=== PATIENT | female | born 1975 | race Caucasian/White ===

== ENCOUNTER 2018-05-21 19:04 | Outpatient (REF) | payer OTHER, SELFPAY ==
--- NOTE | 2018-05-21 15:30 | PAPFT_PTH ---
PATIENT: Rhea Arzola LOC: [facility] U#:[id number] AGE/SX: 43/F ROOM: RE05/21/[address]: Benita Howell : 1975 BED: DIS: 05/21/2018 SPEC #: [id number] RECD: 05/22/18 12:40 STATUS: CESAR BARR #: [id number] ROBSON: 05/21/18 15:[address]: Benita Howell DEPT: [facility] Cytology RECD BY: Betty Khan Tissues: 1 - CX/ENDOCX FOR PAP SMEARS Procedures: PAP THIN PREP/UVM Screening HPV DNA PROBE Comments: [id number]
== END 2018-05-21 19:24 ==
LOC: NCHCN 19:04
PROVIDERS: PCP Physician Assistant Medical; Visit Provider Physician Assistant Medical
DX: Z12.4 Encounter for screening for malignant neoplasm of cervix (principal); Z11.51 Encounter for screening for human papillomavirus (HPV)
CPT/HCPCS: 88142; 87624

== ENCOUNTER 2018-06-04 07:44 | Outpatient (CLI) | payer OTHER, SELFPAY ==
[2018-06-04 10:16] LABS: TSH (W/Ref FT4) 1.27 uIU/mL (0.358-3.74)
[2018-06-06 12:28] LABS: ALT 21 U/L (12-78); AST 20 U/L (15-37); Albumin 3.8 g/dL (3.4-5.0); Alkaline Phosphatase 45 U/L (46-116); Anion Gap 12.5 mmol/L (3-11); BUN 12 mg/dL (7-18); Bilirubin, Total 0.3 mg/dL (0.2-1.0); CO2 23.5 mmol/L (21.0-32.0); CREATININE 0.81 mg/dL (0.55-1.02); Calcium 8.6 mg/dL (8.5-10.1); Chloride 105 mmol/L (98-107); Cholesterol 171 mg/dL (50-200); Glucose 87 mg/dL (70-100); HDL Cholesterol 48 mg/dL (40-60); LDL CHOLESTEROL 100 mg/dL (<100); Potassium 3.6 mmol/L (3.5-5.1); Sodium 141 mmol/L (136-145); Total Protein 6.6 g/dL (6.4-8.2); Triglyceride 84 mg/dL (30-150)
== END 2018-06-04 08:04 ==
PROVIDERS: PCP Physician Assistant Medical; Visit Provider Physician Assistant Medical
DX: Z00.00 Encounter for general adult medical examination without abnormal findings (principal); Z13.29 Encounter for screening for other suspected endocrine disorder; Z13.220 Encounter for screening for lipoid disorders; Z13.228 Encounter for screening for other metabolic disorders
CPT/HCPCS: 36415; 80053; 80061; 83721; 84443

== ENCOUNTER 2018-06-16 01:00 | Outpatient (CLI) | payer OTHER, SELFPAY ==
--- NOTE | 2018-06-16 17:19 | DI.MAMMO_ITS ---
SYMPTOM/DIAGNOSIS: SCREENING, Z12.31, HEALTH MAINTENANCE, Z00.8 MAMMOGRAMS: Mammograms were interpreted according to the usual protocol including computer analysis with CAD system, tomosynthesis and C view imaging. Comparison with prior examinations. Breast density D. No suspicious masses or microcalcifications are seen. There is no definite evidence of malignancy. IMPRESSION: Negative mammogram. Routine screening is recommended. Category I. MQSA ASSESSMENT OF FINDINGS: Negative. Category 1. Patient will receive a letter notifying them of these results. BI-RADS category D. The breasts are extremely dense, which lowers the sensitivity of mammography.
== END 2018-06-16 01:20 ==
PROVIDERS: PCP Physician Assistant Medical; Visit Provider Physician Assistant Medical
DX: Z00.00 Encounter for general adult medical examination without abnormal findings (principal); Z12.31 Encounter for screening mammogram for malignant neoplasm of breast
CPT/HCPCS: 77063; 77067

== ENCOUNTER 2019-01-14 18:17 | Outpatient (REF) | payer OTHER, SELFPAY | END 2019-01-14 18:37 | LOC: NCHCN 18:17 | PROVIDERS: PCP Physician Assistant Medical; Visit Provider Physician Assistant Medical | DX: N89.8 Other specified noninflammatory disorders of vagina (principal) | CPT/HCPCS: 87480; 87510; 87660 ==

== ENCOUNTER 2020-03-29 12:11 | Outpatient (REF) | payer OTHER, SELFPAY ==
--- NOTE | 2020-03-29 16:00 | SKI_PTH ---
PATIENT: Rhea Arzola LOC: [facility] U#:[id number] AGE/SX: 45/F ROOM: RE03/29/[address]: Rambo Bradley V : 1975 BED: DIS: 03/29/2020 SPEC #: [id number] RECD: 03/30/20 16:16 STATUS: CESAR REQ #: [id number] ROBSON: 03/29/20 16:[address]: Rambo Bradley V DEPT: Surgical Specimen RECD BY: Betty Khan ENTERED: 03/30/20 16:17 SP TYPE: CASSANDRA LYONS DR: Benita Howell Tissues: 1 - SKIN BIOPSY(SHAVE/PUNCH) Procedures: SKIN LEVEL 4 Comments: [id number]
== END 2020-03-29 12:31 ==
LOC: LBN 12:11
PROVIDERS: PCP Physician Assistant Medical; Visit Provider Physician Assistant Medical
DX: C44.42 Squamous cell carcinoma of skin of scalp and neck (principal)
CPT/HCPCS: 88305

== ENCOUNTER 2020-11-03 03:42 | Outpatient (CLI) | payer BC, SELFPAY ==
--- NOTE | 2020-11-03 15:18 | DI.MAMMO_ITS ---
Exam(s) MAMMO SCREENING EXAM: MAMMO SCREENING CLINICAL HISTORY: SCREENING, HEALTH MAINTENANCE, Z00.8. TECHNIQUE: Bilateral full field digital CC and MLO mammographic images were obtained with 3D tomosyn thesis and utilizing computer aided detection (CAD). COMPARISON: Prior mammograms dating back to 2013, the most recent being June 2018. FINDINGS: Fibroglandular tissue is again noted be moderately dense, this decreasing the sensitivity of the mamm ogram for finding hidden underlying lesions. There are no new obvious spiculated masses nor malignant appearing microcalcification groups. There is no significant architectural distortion nor skin thickening-retraction. IMPRESSION: Dense bilateral fibroglandular tissue. No obvious radiographic evidence of malignancy nor significan t change compared to the prior studies listed above. BI-RADS Category 1 - Negative Breast Density - Category D - Extremely dense Breast density Category C or D implies that the patient has dense breast tissue. Dense breast tissue can make it harder to find cancer on a mammogram. Dense breast tissue is also associated with an incr eased risk of breast cancer. This information about the result of the mammogram report was provided to the patient to raise their awareness. Use this report when you speak with the patient about their risks for breast cancer, which includes their family history. At that time, you may recommend additional screening tests (Ultrasoun d or MRI) as these tests may add significant information. A negative radiographic report should not delay biopsy if a dominant or clinically suspicious mass is present. Up to ten percent of cancers are not identified on mammography. A negative report may reinforce clinical impression. Adenosis and dense breasts may obscure an underlying neoplasm. False positive reports average 6 to 10%. Patient will receive a letter notifying them of these results.
== END 2020-11-03 04:02 ==
PROVIDERS: PCP Physician Assistant Medical; Visit Provider Physician Assistant Medical
DX: Z12.31 Encounter for screening mammogram for malignant neoplasm of breast (principal); Z00.8 Encounter for other general examination
CPT/HCPCS: 77063; 77067

== ENCOUNTER 2022-07-31 08:52 | Day surgery (SDC) | payer BC, SELFPAY ==
--- NOTE | 2022-07-30 18:38 | PDOC.DSDIS_ITS ---
Date of service: 07/31/22 Time of Service: 10:18 Discharge Plan Disposition Patient Disposition: Home Condition: Good Discharge Details Reason For Visit: colon scope/colon cancer screening Attending Provider: Jennifer Lorenz Primary Care Provider: Benita Howell Home Meds and New Rx's Prescriptions: Continued cetirizine [Zyrtec] 10 mg tablet 10 mg PO DAILY PRN duloxetine 30 mg capsule,delayed release(DR/EC) 30 mg PO DAILY duloxetine 60 mg capsule,delayed release(DR/EC) 60 mg PO DAILY albuterol sulfate [Ventolin HFA] 90 mcg/actuation HFA aerosol inhaler 2 puff inhalation Q6H PRN Discontinued polyethylene glycol 3350 17 gram/dose powder 238 g PO ONCE Qty: 238 0RF Rx Instructions: take per colonoscopy instructions bisacodyl [Dulcolax (bisacodyl)] 5 mg tablet,delayed release (DR/EC) 5 mg PO ONCE Qty: 4 0RF Rx Instructions: take per colonoscopy instructions Discharge Instructions Additional Instructions: DSU Colonoscopy Post- Op Instructions Instructions for Everyone who is given Anesthesia: For your safety, please do the following for the next twenty-four (24) hours: *Do Not operate a motor vehicle (car, truck, motorcycle, etc.) *Do Not drink alcoholic beverages or use any recreational drugs for the first 24 hours or while taking pain medications. The medications in your body may have a reaction that can be dangerous. *Do Not make any important decisions or sign any important papers. Findings: x3 polyps Follow up: -My office will send a letter in 2 to 3 weeks time, stating as to what type of polyps they were and when we want you to repeat the colonoscopy, 5-7 year. 1. No lifting over 20 pounds or strenuous activity for the first 24 hours after your procedure. After 24 hours there are no restrictions on your activity but you may feel fatigued for a few days. 2. After you arrive home you may have a light meal and return to your normal diet as you can tolerate it without feeling sick to your stomach. 3. You may have a bloated, gaseous feeling in your belly (abdomen) after a colonoscopy. Passing gas and belching will help. Walking or lying down on your left side with your knees flexed may relieve the discomfort. Call the office at [phone] (Office) or [phone] (Hospital) right away if you notice any of the following: a.Vomiting of blood or ?coffee ground stools?. b.Rectal bleeding 1Tbsp, blood clots or continuous bleeding. c.Severe belly (abdominal) pain. d.A hard distended belly (abdomen) and an inability to pass gas. 4. Please don?t expect to have a normal BM (bowel movement) for 2-3 days after your procedure. 5. If there are questions regarding the findings of your procedure, please contact your doctor 6. If you are unable to contact your doctor with a problem, contact the hospital at [phone]. 7. Continue all your regular medications unless directed otherwise. I understand the above instructions and have no questions. Signature of Patient or Adult Escort Name of Responsible Adult Escort Signature of Nurse Date/Time Activity:: see above Diet:: see above Discharge Orders Discharge Orders: Discharge Order (Routine); Ordered 07/31/22 Ordered By: Jennifer Lorenz
[2022-07-31 09:01] VITALS: BP 124/83; PULSE 100; RESP 20; TEMP 36.6; O2SAT 100
--- NOTE | 2022-07-31 09:11 | ANES.PREOP_ITS ---
General Info Date of Service Date Performed: 07/31/22 Height: 5 ft 7.75 in Weight: 72.9 kg Body Mass Index (BMI): 24.6 Surgical Procedure: Operation Date: 07/31/22 10:05 Proposed Procedure Side Surgeon brynn Lorenz, DO Meds Allergies and Home Medications Allergies Allergy/AdvReac Type Severity Reaction Status Date / Time benzoyl peroxide Allergy Intermediate RASH Verified 07/30/22 11:12 Sulfa (Sulfonamide Allergy Intermediate HIVES Verified 07/30/22 11:12 Antibiotics) Home Medication Medication Instructions Recorded albuterol sulfate 90 mcg/actuation 2 puff inhalation Q6H PRN 02/12/22 aerosol inhaler (Ventolin HFA) duloxetine 30 mg capsule,delayed 30 mg PO DAILY 02/12/22 release duloxetine 60 mg capsule,delayed 60 mg PO DAILY 02/12/22 release cetirizine 10 mg tablet (Zyrtec) 10 mg PO DAILY PRN 07/26/22 Current Visit Medications: Current Medications Generic Name Dose Route Start Last Admin Trade Name Freq PRN Reason Stop Dose Admin Hyoscyamine Sulfate 0.125 mg 07/31/22 11:36 Hyoscyamine 0.125 Mg Sl/Oral/Chew SL DIRECTED PRN Ringer's Solution 1,000 mls @ 80 mls/hr 07/31/22 06:00 IV 08/29/22 23:59 INFUSION [facility] IV Miscellaneous Supplies 1 each 07/31/22 06:00 Iv Access IV 08/29/22 23:59 DIRECTED [place] Ondansetron HCl 4 mg 07/31/22 11:36 Ondansetron 4 Mg/2 Ml Vial IVP Q4H PRN PRN Nausea / Vomiting Sodium Chloride 0 ml 07/31/22 06:00 Normal Saline Flush 10 Ml Syr IV 08/29/22 23:59 PRN PRN Sodium Chloride 0 ml 07/31/22 06:00 Normal Saline 10 Ml Vial IJ 08/29/22 23:59 DIRECTED PRN Sterile Water 0 ml 07/31/22 06:00 Water,Injection,Sterile 10 Ml Vial IJ 08/29/22 23:59 DIRECTED PRN PFSH Active Problems Active Problems: Problem Status Onset Code Acute UTI N39.0 Allergic asthma J45.909 Raynaud's phenomenon I73.00 Depression F32.A Acne L70.9 Hard of hearing H91.90 ZEN (obstructive sleep apnea) G47.33 Screening for colon cancer Z12.11 Medical History Medical History Allergic rhinitis NE (generalized anxiety disorder) Primary squamous cell carcinoma of head and neck Unresolved grief Tobacco Smoking/Tobacco Use Status: Never Alcohol Alcohol Intake: current Alcohol intake frequency: holidays/special occasions only Substance Use Substance use: Never Substance use type: does not use Vital Signs and Lab Results Vital Signs Most Recent Vital Signs in EMR: Most Recent Vital Signs Temp Pulse Resp BP Pulse Ox 36.6 C 100 H 20 124/83 100 07/31/22 09:01 07/31/22 09:01 07/31/22 09:01 07/31/22 09:01 07/31/22 09:01 Lab Results Blood Type / Crossmatch: No Data to Display Complete Blood Count: No Data to Display Complete Metabolic Panel: No Data to Display Liver Function Panel: No Data to Display Coagulation Panel: No Data to Display Cardiac Panel: No Data to Display Arterial Blood Gas: No Data to Display Venous Blood Gas: No Data to Display Pancreas Panel: No Data to Display Thyroid Panel: No Data to Display Infectious Disease: No Data to Display Blood Cultures: No Data to Display Toxicology Panel: No Data to Display Panel: No Data to Display Anesthesia Assessment and Plan Anesthesia History Personal History: No History of Anesthesia Complications Family History: No Family History of Anesthesia Complications Exercise Tolerance Exercise Tolerance: Metabolic Equivalents>4 Pertinent Negatives Pertinent Negatives: No Symptoms of GERD, No Major Cardiovascular Symptoms or Complaints and No Major Pulmonary Symptoms or Complaints Cardiac & Pulmonary Exam Cardiac Exam: Normal S1/S2 Heart Sounds Pulmonary Exam: Clear Bilateral Breath Sounds Implantable Cardiac Device Does patient have a Pacemaker or an ICD?: No Airway Exam Known Difficult Airway: No Mallampati Class: 1 Mouth Opening: Normal (> 3cm) Thyromental Distance: Greater than 3 cm Neck Range of Motion: Full ROM Neck Circumference: Normal Teeth Condition: Normal Dentition ASA Classification ASA Score: ASA 2 Emergency Case?: No NPO Status NPO Status: NPO Clears >2 hours, Solids >8 hours Status Status: Negative HCG Anesthesia Plan Resuscitation Status: Full Code Anesthesia Technique: General Anesthesia Airway Planned: Natural Airway Monitors Used: Standard Monitors
[2022-07-31 09:14] VITALS: BMI 24.6
[2022-07-31] MEDS: Lactated Ringers 1,000 ML 80 ML IV (09:15)
--- NOTE | 2022-07-31 09:43 | BOWEL_PTH ---
PATIENT: Rhea Arzola LOC: [facility] U#:[id number] AGE/SX: 47/F ROOM: RE07/31/[address]: Jennifer Lorenz : 1975 BED: DIS: 07/31/2022 SPEC #: [id number] RECD: 07/31/22 12:33 STATUS: CESAR RE #: [id number] ROBSON: 07/31/22 09:[address]: Jennifer Lorenz DEPT: Surgical Specimen RECD BY: Betty Khan ENTERED: 07/31/22 12:36 SP TYPE: Bowel OTHR DR: Benita Howell Tissues: 1 - BIOPSY BOWEL 2 - BIOPSY BOWEL Procedures: GROSS AND MICRO LEVEL 4 Comments: [id number]
[2022-07-31 10:06] VITALS: BP 97/68; PULSE 79; RESP 16; TEMP 36.6; O2SAT 78
--- NOTE | 2022-07-31 10:19 | COLE_ITS ---
Date of service: 07/31/22 Time of Service: 10:19 Colonoscopy Report Date of procedure: 07/31/22 Pre-op diagnosis general: CRC screening Post-op diagnosis procedure note: other (polyps ) Surgeon: Jennifer Lorenz Anesthesia Type: General:No Airway Estimated blood loss (mL): 2 Pathology: other Complications: None Disposition: same day Prep: Miralax/Dulcolax Retraction Time: 18 Procedure Description: After informed consent was obtained the patient was taken to the procedure room and placed in a left decubitous position. Monitors were applied and a time out was done. The patients name, date of , procedure, allergies to medications and metal in their body was reviewed. The patient was then sedated. Once sedated and comfortable a rectal exam was done. External exam was normal. Internal exam revealed a normal sphincter tone and no palpable masses. The scope was then introduced and retrofelexed. No internal hemorrhoids were identified. The scope was then advanced to the cecum w/out difficulty. The TI and appendiceal orifice were identified. The prep was BBPS 3 in all segments for a total of 9. The scope was then slowly retracted over 18 minutes back into the rectum. The patient 3 polyps that were removed. One was a 0.75 cm polyp at 40 cm that is removed with a cold biting forcep. There is another 0.75 cm pedunculated polyp at 20 cm that is removed with a cold snare. There is another 5 mm flat polyp at 20 cm that is removed with a cold snare. All specimens are retrieved and no bleeding is noted. The mucosa is pink and healthy with a normal vascular pattern. There are no AVMs or diverticula visualized. The scope was removed and the patient was woken up and taken back to Same day surgery in stable condition. The patient tolerated the procedure well and there were no immediate com plications. Follow up: The patient should follow up in 5-7, path pd, years unless they develop changes in bowel habits or other new gastrointestinal complaints.
[2022-07-31 10:35] VITALS: BP 111/74; PULSE 84; RESP 16; TEMP 37.1; O2SAT 97
--- NOTE | 2022-07-31 10:49 | W.ANESPOSTOP ---
Postoperative Evaluation Date, Time and Location Date Performed: 07/31/22 Time Performed: 10:49 Patient Location: Day Surgery Unit Vital Signs Most Recent Imported Vital Signs: Most Recent Vital Signs Temp Pulse Resp BP Pulse Ox 37.1 C 84 16 111/74 97 07/31/22 10:35 07/31/22 10:35 07/31/22 10:35 07/31/22 10:35 07/31/22 10:35 Pain Score Most Recent Pain Score: Most Recent Pain Score Pain Level 0 07/31/22 10:35 Assessment Mental Status: Awake (Alert & Oriented to Patient Baseline) Airway and Respiratory Function: Patent airway with normal (patient baseline) respiratory exam Cardiovascular Function: Hemodynamically Stable Hydration Status: Adequately Hydrated Nausea & Vomiting: No Nausea or Vomiting Pain: Pt. Denies Any Pain Peripheral Nerve Block: Patient did not receive a nerve block
== END 2022-07-31 11:15 | disposition home or self-care (01) ==
PROVIDERS: PCP Physician Assistant Medical; Visit Provider Surgery
PROC: 0DJD8ZZ Inspection of Lower Intestinal Tract, Via Natural or Artificial Opening Endoscopic (ICD-10-PCS; CPT 45378; principal; 2022-07-31 10:00)
DX: Z12.11 Encounter for screening for malignant neoplasm of colon (principal); K63.5 Polyp of colon
CPT/HCPCS: 45385; 45380; 81025; 88305

== ENCOUNTER 2022-09-21 00:33 | Outpatient (CLI) | payer BC, SELFPAY ==
--- NOTE | 2022-09-21 | DI.MAMMO_ITS ---
Exam(s) MAMMO SCREENING EXAM: MAMMO SCREENING CLINICAL HISTORY: SCREENING MAMMO FOR BREAST CANCER Z12.39. TECHNIQUE: Bilateral full field digital CC and MLO mammographic images were obtained with 3D tomosyn thesis and utilizing computer aided detection (CAD). COMPARISON: Prior mammograms were reviewed. FINDINGS: Fibroglandular tissue is again noted be moderately dense. Asymmetric tissue posterolaterally in the right breast is unchanged There are no obvious new spiculated masses nor malignant appearing microcalcification groups. There is no significant architectural distortion nor skin thickening-retraction. IMPRESSION: No radiographic evidence of malignancy. BI-RADS Category 1 - Negative Breast Density - Category C - Heterogeneously dense Breast density Category C or D implies that the patient has dense breast tissue. Dense breast tissue can make it harder to find cancer on a mammogram. Dense breast tissue is also associated with an incr eased risk of breast cancer. This information about the result of the mammogram report was provided to the patient to raise their awareness. Use this report when you speak with the patient about their risks for breast cancer, which includes their family history. At that time, you may recommend additional screening tests (Ultrasoun d or MRI) as these tests may add significant information. A negative radiographic report should not delay biopsy if a dominant or clinically suspicious mass is present. Up to ten percent of cancers are not identified on mammography. A negative report may reinforce clinical impression. Adenosis and dense breasts may obscure an underlying neoplasm. False positive reports average 6 to 10%. Patient will receive a letter notifying them of these results.
== END 2022-09-21 00:53 ==
LOC: DI 00:33
PROVIDERS: PCP Physician Assistant Medical; Visit Provider Physician Assistant Medical
DX: Z12.31 Encounter for screening mammogram for malignant neoplasm of breast (principal)
CPT/HCPCS: 77063; 77067

== ENCOUNTER 2023-03-19 13:21 | Outpatient (REF) | payer BC, SELFPAY ==
[2023-03-19 16:47] LABS: ALT 19 U/L (14-59); AST 18 U/L (15-37); Albumin 4.1 g/dL (3.4-5.0); Alkaline Phosphatase 53 U/L (46-116); Anion Gap 6.9 mmol/L (3-11); BUN 11 mg/dL (7-18); Bilirubin, Total 0.4 mg/dL (0.2-1.0); CO2 28.1 mmol/L (21.0-32.0); CREATININE 0.8 mg/dL (0.55-1.02); Calcium 8.8 mg/dL (8.5-10.1); Chloride 103 mmol/L (98-107); Estimated GFR 89.71 (mL/min/1.73m2); FREE T4 0.72 ng/dL (0.76-1.46); Glucose 102 mg/dL (74-106); Potassium 3.8 mmol/L (3.5-5.1); Sodium 138 mmol/L (136-145); TSH 1.96 uIU/mL (0.36-3.74); Total Protein 7.6 g/dL (6.4-8.2)
[2023-03-19 17:07] LABS: Vitamin D 25 Total 24.7 ng/mL (30-100)
== END 2023-03-19 13:22 | disposition home or self-care (01) ==
LOC: NCHCN 13:21
PROVIDERS: PCP Physician Assistant Medical; Visit Provider Physician Assistant Medical
DX: F32.89 Other specified depressive episodes (principal); Z79.899 Other long term (current) drug therapy; E55.9 Vitamin D deficiency, unspecified
CPT/HCPCS: 80053; 82306; 84439; 84443

== ENCOUNTER 2023-07-04 05:08 | Outpatient (CLI) | payer BC, SELFPAY ==
[2023-07-04 17:14] LABS: ALT 21 U/L (14-59); AST 17 U/L (15-37); Albumin 3.8 g/dL (3.4-5.0); Alkaline Phosphatase 58 U/L (46-116); Anion Gap 7.3 mmol/L (3-11); BUN 13 mg/dL (7-18); Bilirubin, Total 0.3 mg/dL (0.2-1.0); CO2 28.7 mmol/L (21.0-32.0); CREATININE 0.8 mg/dL (0.55-1.02); Calcium 8.8 mg/dL (8.5-10.1); Chloride 102 mmol/L (98-107); Estimated GFR 89.71 (mL/min/1.73m2); Glucose 87 mg/dL (74-106); Potassium 3.9 mmol/L (3.5-5.1); Sodium 138 mmol/L (136-145)
== END 2023-07-04 05:09 | disposition home or self-care (01) ==
LOC: LBO 05:08
PROVIDERS: PCP Physician Assistant Medical; Visit Provider Nurse Practitioner Psychiatric/Mental Health
DX: R42 Dizziness and giddiness (principal)
CPT/HCPCS: 36415; 80053

== ENCOUNTER 2024-04-22 18:36 | Outpatient (REF) | payer BC, SELFPAY ==
--- NOTE | 2024-04-22 17:30 | PAPFT_PTH ---
PATIENT: Rhea Arzola LOC: [facility] #:[id number] AGE/SX: 49/F ROOM: RE04/22/[address]: Benita Howell : 1975 BED: DIS: 04/22/2024 SPEC #: [id number] RECD: 04/23/24 13:06 STATUS: CESAR BARR #: [id number] ROBSON: 04/22/24 17:[address]: Benita Howell DEPT: [facility] Cytology RECD BY: Betty Khan Tissues: 1 - CX/ENDOCX FOR PAP SMEARS Procedures: PAP THIN PREP/UVM Screening HPV DNA PROBE Comments: [id number] (HPV 16 & 18/45)
[2024-04-22 19:58] LABS: Hemoglobin A1C 5.6 % (<5.7)
[2024-04-22 20:03] LABS: Calculated LDL 140 mg/dL (<100); Cholesterol 222 mg/dL (<200); HDL Cholesterol 63 mg/dL (40-60); Triglyceride 97 mg/dL (<150)
== END 2024-04-22 18:37 | disposition home or self-care (01) ==
LOC: NCHCN 18:36
PROVIDERS: PCP Physician Assistant Medical; Visit Provider Physician Assistant Medical
DX: Z11.51 Encounter for screening for human papillomavirus (HPV) (principal); Z00.00 Encounter for general adult medical examination without abnormal findings; Z01.419 Encounter for gynecological examination (general) (routine) without abnormal findings
CPT/HCPCS: 80061; 88142; 83036; 87624

== ENCOUNTER 2024-07-27 01:59 | Outpatient (CLI) | payer BC, SELFPAY ==
--- NOTE | 2024-07-27 11:56 | DI.MAMMO_ITS ---
Exam(s) MAMMO SCREENING EXAM: MAMMO SCREENING CLINICAL HISTORY: Screening, Z12.31 TECHNIQUE: Bilateral full field digital CC and MLO mammographic images were obtained with 3D tomosyn thesis and utilizing computer aided detection (CAD). COMPARISON: Available for comparison. FINDINGS: Masses/Architectural Distortion: No suspicious masses or areas of architectural distortion are presen t. Microcalcifications: No suspicious pleomorphic-type are seen. Skin Thickening/Nipple Retraction: None. IMPRESSION: 1. No significant interval change with no specific features of malignancy noted. 2. Unless there is more urgent need, screening mammography is recommended, as per [place] guidelines. BI-RADS Category 1 - Negative Breast Density - Category C - Heterogeneously dense Breast density category C or D implies that the patient has dense breast tissue. Dense breast tissue is very common and is not abnormal but dense breast tissue can make it harder to find cancer on a ma mmogram. Also, dense breast tissue may increase their breast cancer risk. This information about the result of the mammogram report was provided to the patient to raise their awareness. Use this report when you speak with the patient about their risks for breast cancer, which includes their family hist ory. At that time, you may recommend for more screening tests (Ultrasound or MRI) as they might be us eful based on their risk. A negative radiographic report should not delay biopsy if a dominant or clinically suspicious mass is present. Up to ten percent of cancers are not identified on mammography. A negative report may reinforce clinical impression. Adenosis and dense breasts may obscure an underlying neoplasm. False positive reports average 6 to 10%. Patient will receive a letter notifying them of these results.
== END 2024-07-27 02:19 ==
LOC: DI 01:59
PROVIDERS: PCP Physician Assistant Medical; Visit Provider Internal Medicine Hematology
DX: Z12.31 Encounter for screening mammogram for malignant neoplasm of breast (principal); R92.333 Mammographic heterogeneous density, bilateral breasts
CPT/HCPCS: 77063; 77067

== ENCOUNTER 2024-09-24 10:36 | Outpatient (CLI) | payer BC, SELFPAY ==
[2024-09-24 07:53] LABS: Absolute Basophil Count 0.03 10^3/uL (0.0-0.2); Absolute Eosinophil Count 0.14 10^3/uL (0.0-0.7); Absolute Monocyte Count 0.53 10^3/uL (0.1-0.8); Absolute Neutrophil Count 2.38 10^3/uL (1.2-6.7); Basophils % 0.6 %; HCT 38.6 % (36.0-46.0); HGB 12.4 g/dL (11.2-15.7); Lymphocytes % 34.2 %; MCH 30.1 pg (27.0-33.0); MCHC 32.1 % (32.0-36.0); MCV 94 fL (80-95); MPV 9.7 fL (8.0-11.0); Monocytes % 11.3 %; Neutrophils % 50.9 %; Platelet Count 229 10^3/uL (130-400); RBC 4.12 10^6/uL (3.93-5.22); RDW 13.2 % (11.7-14.6); RDW-SD 45.5 fL; WBC 4.68 10^3/uL (4.4-10.8)
[2024-09-24 09:35] LABS: ALT 9 U/L (14-59); Albumin 3.9 g/dL (3.4-5.0); Alkaline Phosphatase 54 U/L (46-116); Anion Gap 9.1 mmol/L (3-11); BUN 13 mg/dL (7-18); Bilirubin, Total 0.2 mg/dL (0.2-1.0); CO2 25.9 mmol/L (21.0-32.0); CREATININE 0.8 mg/dL (0.55-1.02); Calculated LDL 93 mg/dL (<100); Chloride 104 mmol/L (98-107); Cholesterol 195 mg/dL (<200); Estimated GFR 89.15 (mL/min/1.73m2); FREE T4 0.67 ng/dL (0.76-1.46); Ferritin 34 ng/mL (8-252); Glucose 112 mg/dL (74-106); HDL Cholesterol 31 mg/dL (>or=50); Sodium 139 mmol/L (136-145); TSH 1.26 uIU/mL (0.36-3.74); Triglyceride 355 mg/dL (<150); Vitamin B12 405 pg/mL (193-986); Vitamin D 25 Total 28 ng/mL (30-100)
[2024-09-24 09:45] LABS: AST < 5 U/L (15-37)
== END 2024-09-24 10:37 | disposition home or self-care (01) ==
LOC: LBO 10:36
PROVIDERS: PCP Physician Assistant Medical; Visit Provider Nurse Practitioner Psychiatric/Mental Health
DX: Z51.81 Encounter for therapeutic drug level monitoring (principal)
CPT/HCPCS: 36415; 80053; 80061; 82306; 82607; 82728; 84439; 84443; 85025

== ENCOUNTER 2024-09-29 10:51 | Outpatient (CLI) | payer BC, SELFPAY ==
[2024-09-29 11:21] LABS: ALT 25 U/L (14-59); AST 13 U/L (15-37); Alkaline Phosphatase 57 U/L (46-116); Anion Gap 4.1 mmol/L (3-11); BUN 12 mg/dL (7-18); Bilirubin, Total 0.4 mg/dL (0.2-1.0); CO2 29.9 mmol/L (21.0-32.0); Chloride 106 mmol/L (98-107); Estimated GFR 68.21 (mL/min/1.73m2); Glucose 88 mg/dL (74-106); Sodium 140 mmol/L (136-145); Total Protein 7.1 g/dL (6.4-8.2)
== END 2024-09-29 10:52 | disposition home or self-care (01) ==
LOC: LBO 10:51
PROVIDERS: PCP Physician Assistant Medical; Visit Provider Nurse Practitioner Psychiatric/Mental Health
DX: Z51.81 Encounter for therapeutic drug level monitoring (principal)
CPT/HCPCS: 36415; 80053